=== PATIENT | female | born 1940 | race Two or more races ===

== ENCOUNTER 2025-03-26 16:34 | Emergency (ER) | payer OTHER ==
[~2025-03-26] VITALS: Ht 160 cm; Wt 73.5 kg
[2025-03-26] MEDS ORDERED: METFORMIN HCL500 M2 (16:46)
[2025-03-26] MEDS ORDERED: CEFTRIAXONE SODIUM 1,000 MG VIAL IV ONE (19:15)
[2025-03-26 20:09] LABS: BASO % 0.4 % (0.1-1.2); EOS # 0.10 (0.04-0.54); EOS % 1.3 % (0.7-7.0); LYMPH # 2.25 (1.18-3.74); LYMPH % 28.1 % (19.3-53.1); MEAN PLATELET VOLUME 10.20 fl (9.4-12.4); MONO # 0.73 (0.24-0.82); MONO % 9.1 % (4.7-12.5); NEUT # 4.86 (1.56-6.13); NEUT % 60.7 % (34.0-71.1); RED CELL DISTRIBUTION WIDTH 14.2 % (11.6-14.4)
[2025-03-26 20:11] LABS: ERYTHROCYTE SEDIMENTATION RATE 37 mm/hr (0-30)
[2025-03-26 20:44] LABS: ALT/SGPT 17.0 U/L (12-78); AST/SGOT 16.0 U/L (15-37); BILIRUBIN TOTAL 0.4 mg/dL (0.3-1.2); BUN CREA RATIO 27.0 (7.0-25.0); CREATININE SERUM 0.67 mg/dL (0.55-1.02); GFR 84.26; GLOBULINA 3.9 G/DL (2.4-3.5); GLUCOSE FASTING 104.0 mg/dL (65-100); OSMOLALITY SERUM 285.0 MOSM/KG (275-295)
[2025-03-26] MEDS ORDERED: CEPHALEXIN500 M1 PO (20:57)
== END 2025-03-26 22:37 | disposition home or self-care (01) ==
LOC: ER 16:34
PROVIDERS: Preventive Medicine Public Health & General Preventive Medicine
DX: G89.11 Acute pain due to trauma (principal); M25.561 Pain in right knee; L03.115 Cellulitis of right lower limb; R60.0 Localized edema; I10 Essential (primary) hypertension; E11.9 Type 2 diabetes mellitus without complications; Z79.84 Long term (current) use of oral hypoglycemic drugs; Z88.6 Allergy status to analgesic agent
CPT/HCPCS: 36415; 73560; 73610; 73630; 96365; 99283; J0696

== ENCOUNTER 2025-03-30 12:08 | Emergency (ER) | payer OTHER ==
[~2025-03-30] VITALS: Ht 154.9 cm; Wt 70.3 kg
[~2025-03-30 12:08] MED LIST: CEPHALEXIN500 M1 PO; METFORMIN HCL500 M2
== END 2025-03-30 13:44 | disposition home or self-care (01) ==
LOC: ER 12:08
DX: L03.115 Cellulitis of right lower limb (principal); Z88.6 Allergy status to analgesic agent; E78.00 Pure hypercholesterolemia, unspecified; I10 Essential (primary) hypertension; E11.9 Type 2 diabetes mellitus without complications; Z79.84 Long term (current) use of oral hypoglycemic drugs